=== PATIENT | male | born 1990 | race Caucasian/White ===

== ENCOUNTER 2018-06-17 21:01 | Emergency (ER) | payer OTHER ==
[~2018-06-17] VITALS: Ht 175.3 cm; Wt 100.0 kg
[2018-06-17 21:28] VITALS: BP 131/73; Ht 175.3 cm; Wt 100.0 kg
[2018-06-17 21:46] LABS: BASOPHILS 0.2 % (0-2); EOSINOPHILS 1.3 % (0-7); HEMATOCRIT 44.3 % (42.0-54.0); HEMOGLOBIN 15.3 g/dL (13.5-17.5); IMMATURE GRANULOCYTES 0.2 % (0-5); LYMPHOCYTES 18.4 % (15-50); MCH 32.3 pg (26.0-34.0); MCHC 34.5 g/dL (31.0-37.0); MCV 93.5 fL (80.0-100.0); MEAN PLATELET VOLUME 10.5 fL (7.4-10.4); MONOCYTES 7.2 % (2-11); NEUTROPHILS 72.7 % (40-80); PLATELET COUNT 181 10x3/uL (130-400); RBC 4.74 10x6/uL (4.20-6.10); RDW 12.2 % (11.5-14.5); WBC 8.6 10x3/uL (4.8-10.8)
[2018-06-17 22:01] LABS: ALBUMIN 3.8 g/dL (3.4-5.0); ALKALINE PHOSPHATASE 85 U/L (46-116); ALT (SGPT) 38 U/L (10-68); AMYLASE - SERUM 24 U/L (25-115); BILIRUBIN - TOTAL 0.32 mg/dL (0.2-1.3); CALC OSMOLALITY 282 mosm/kg (275-300); CALCIUM 8.7 mg/dL (8.5-10.1); CARBON DIOXIDE 28.8 mmol/L (21.0-32.0); CHLORIDE - SERUM 104 mmol/L (98-107); CREATININE - SERUM 1.2 mg/dL (0.6-1.3); GLUCOSE 87 mg/dL (74-106); LIPASE 115 U/L (73-393); SODIUM 143 mmol/L (136-145); UREA NITROGEN 10 mg/dL (7-18); eGFR NON AFRICAN AMERICAN 78 mL/min (90-120)
[2018-06-17 22:42] LABS: APPEARANCE CLEAR (CLEAR); BILIRUBIN NEGATIVE (NEGATIVE); COLOR STRAW (YELLOW); GLUCOSE NEGATIVE (NEGATIVE); KETONE NEGATIVE (NEGATIVE); NITRITE NEGATIVE (NEGATIVE); PROTEIN NEGATIVE (NEGATIVE); UROBILINOGEN NORMAL (NORMAL)
[2018-06-17] MEDS ORDERED: BENTYL10 MG PO (23:28)
== END 2018-06-17 23:37 | disposition home or self-care (01) ==
LOC: D.ER 21:01
PROVIDERS: Family Medicine
DX: R10.9 Unspecified abdominal pain (principal); R11.2 Nausea with vomiting, unspecified; R19.7 Diarrhea, unspecified; F17.200 Nicotine dependence, unspecified, uncomplicated

== ENCOUNTER 2018-06-25 14:58 | Emergency (ER) | payer OTHER ==
[~2018-06-25] VITALS: Ht 175.3 cm; Wt 100.0 kg
[~2018-06-25 14:58] MED LIST: BENTYL10 MG PO
[2018-06-25 15:01] VITALS: Ht 175.3 cm; Wt 100.0 kg
[2018-06-25 15:29] LABS: BASOPHILS 0.1 % (0-2); EOSINOPHILS 1.1 % (0-7); IMMATURE GRANULOCYTES 0.3 % (0-5); LYMPHOCYTES 19.2 % (15-50); MCH 32.5 pg (26.0-34.0); MCHC 35.6 g/dL (31.0-37.0); MCV 91.3 fL (80.0-100.0); MEAN PLATELET VOLUME 10.1 fL (7.4-10.4); MONOCYTES 6.2 % (2-11); NEUTROPHILS 73.1 % (40-80); PLATELET COUNT 177 10x3/uL (130-400); RBC 4.93 10x6/uL (4.20-6.10); RDW 12.2 % (11.5-14.5); WBC 7.3 10x3/uL (4.8-10.8)
[2018-06-25 15:31] LABS: APPEARANCE CLEAR (CLEAR); BILIRUBIN NEGATIVE (NEGATIVE); COLOR YELLOW (YELLOW); GLUCOSE NEGATIVE (NEGATIVE); KETONE NEGATIVE (NEGATIVE); NITRITE NEGATIVE (NEGATIVE); PROTEIN NEGATIVE (NEGATIVE); SPECIFIC GRAVITY 1.015 (1.005-1.020); UROBILINOGEN NORMAL (NORMAL)
[2018-06-25 16:11] LABS: ALBUMIN 3.8 g/dL (3.4-5.0); ALKALINE PHOSPHATASE 74 U/L (46-116); ALT (SGPT) 48 U/L (10-68); AMYLASE - SERUM 22 U/L (25-115); BILIRUBIN - TOTAL 0.53 mg/dL (0.2-1.3); CALC OSMOLALITY 280 mosm/kg (275-300); CALCIUM 8.6 mg/dL (8.5-10.1); CARBON DIOXIDE 25.8 mmol/L (21.0-32.0); CHLORIDE - SERUM 104 mmol/L (98-107); CREATININE - SERUM 1.1 mg/dL (0.6-1.3); GLUCOSE 122 mg/dL (74-106); LIPASE 74 U/L (73-393); POTASSIUM - SERUM 3.8 mmol/L (3.5-5.1); PROTEIN - SERUM 7.1 g/dL (6.4-8.2); SODIUM 141 mmol/L (136-145); UREA NITROGEN 10 mg/dL (7-18); eGFR NON AFRICAN AMERICAN 86 mL/min (90-120)
[2018-06-25] MEDS ORDERED: FLAGYL500 MG PO (17:33)
[2018-06-25] MEDS ORDERED: PROBIOTIC250 MG PO (17:33)
[2018-06-25] MEDS ORDERED: ZOFRAN4 MG PO (17:33)
[2018-06-25 17:54] VITALS: BP 126/76
== END 2018-06-25 17:53 | disposition home or self-care (01) ==
LOC: D.ER 14:58
PROVIDERS: Family Medicine
DX: R10.32 Left lower quadrant pain (principal); K52.9 Noninfective gastroenteritis and colitis, unspecified; F17.200 Nicotine dependence, unspecified, uncomplicated